=== PATIENT | male | born 1970 | race Caucasian/White ===

== ENCOUNTER → 2018-04-06 | Outpatient (CLI) | payer OTHER ==
--- NOTE | 2018-04-06 12:22 | Diagnostic Imaging Report ---
INDICATION: Left testicular pain. FINDINGS: The right testicle measures 4.3 x 2.0 x 3.5 cm and the left testicle measures 4.3 x 3.5 x 2.0 cm. Both testes demonstrate homogeneous echotexture. No discrete testicular mass is seen. There is normal blood flow bilaterally. There is a large cyst involving the left epididymal head measuring approximately 15 mm x 14 mm. No hydrocele is seen. No varicocele is identified. IMPRESSION: 1. No evidence of testicular mass or vascular compromise. 2. Left epididymal cyst. Dictated by: Dictated on workstation # [id number]
== END ==
LOC: RAD 09:01
PROVIDERS: ATTEND Urology
DX: N50.3 Cyst of epididymis (principal)
CPT/HCPCS: 76870